=== PATIENT | female | born 1990 | race Hispanic/Latino ===

== ENCOUNTER 2025-01-09 14:43 | Emergency (ER) | payer SELFPAY ==
[~2025-01-09] VITALS: Ht 170.2 cm; Wt 99.8 kg
[2025-01-09 15:33] LABS: INFLUENZA A AG NEGATIVE (NEGATIVE)
[2025-01-09 15:34] LABS: CORONAVIRUS COVID-19 AG NEGATIVE (NEGATIVE); INFLUENZA B AG NEGATIVE (NEGATIVE)
[2025-01-09] MEDS: ACETAMINOPHEN 325 MG TAB PO ONE (17:50)
[2025-01-09] MEDS: SODIUM CHLORIDE 0.9% 1000ML 1,000 ML IV STA (17:53)
[2025-01-09 18:29] LABS: BASOPHILS # (AUTO) 0.1 (0.0-0.1); BASOPHILS % 0.4 % (0.0-1.0); EOSINOPHILS # (AUTO) 0.1 (0.0-0.4); EOSINOPHILS % 1.1 % (0.0-6.0); HEMATOCRIT 41.5 % (34.2-44.1); HEMOGLOBIN 13.9 g/dL (12.0-16.0); LYMPHOCYTES # (AUTO) 2.3 (1.0-3.2); LYMPHOCYTES % 19.9 % (18.0-39.1); MEAN CORPUSCULAR HGB CONC 33.5 g/dL (31-35); MEAN CORPUSCULAR VOLUME 86.5 fL (81-99); MONOCYTES # (AUTO) 0.7 (0.2-0.8); NEUTROPHILS # (AUTO) 8.2 (2.1-6.9); NEUTROPHILS % 72.3 % (38.7-80.0); PLATELET COUNT 288 x10e3/uL (140-360); RED CELL DISTRIBUTION WIDTH 12.5 % (11.7-14.4); WHITE BLOOD COUNT 11.33 x10e3/uL (4.8-10.8)
[2025-01-09 18:51] LABS: ALBUMIN 4.2 g/dL (3.5-5.0); ALBUMIN/GLOBULIN RATIO 0.9 (0.8-2.0); ANION GAP 18.4 mmol/L (8-16); BILIRUBIN,TOTAL 0.4 mg/dL (0.2-1.2); CALCIUM 9.6 mg/dL (8.4-10.2); CREATININE, SERUM 0.76 mg/dL (0.57-1.11); POTASSIUM 4.4 mmol/L (3.5-5.1); TOTAL PROTEIN 8.8 g/dL (6.5-8.1)
[2025-01-09] MEDS ORDERED: ULTRAM 50MG50 MG PO (19:00)
[2025-01-09 19:05] VITALS: PULSE 104; RESP 16; TEMP 98.9; O2SAT 100
[2025-01-09] MEDS ORDERED: AZITHROMYCIN250 MG PO (19:07)
[2025-01-09] MEDS ORDERED: PREDNISONE20 MG PO (19:07)
[2025-01-09] MEDS ORDERED: VENTOLIN HFA18 GM INH (19:07)
== END 2025-01-09 19:05 | disposition home or self-care (01) ==
LOC: ER 17:45
DX: R50.9 Fever, unspecified (principal); J01.90 Acute sinusitis, unspecified; R51.9 Headache, unspecified; R05.9 Cough, unspecified; R53.81 Other malaise
CPT/HCPCS: 36415; 70450; 80053; 81025; 85025; 87428; 99284; J7030